=== PATIENT | female | born 1995 | race Caucasian/White ===

== ENCOUNTER 2016-09-28 20:01 | Emergency (ER) | payer BC ==
--- NOTE | 2016-09-28 20:05 | PDOC ---
[id number] No Limitations - History of Present Illness Initial Comments: 09/28/16 20:17 The patient is a 21 year old female with a significant past medical history of asthma, who presents to the ED s/p allergic reaction. Patient states she is experiencing nausea, lightheadedness, difficulty breathing, itchy lips, and itchy gums. Patient states she was eating sushi at around 19:00 when she noticed crab meat in her sushi. Patient used her albuterol inhaler twice prior to presentation. She did not take any antihistamines prior to being seen. Patient states she is allergic to shellfish and peanut butter. Patient denies fever, chills, wheezing, vomiting. <Ben Alvares - Last Filed: 09/28/16 20:38> <Marlee Bess - Last Filed: 09/29/16 01:27> - General Stated Complaint: ALLERGIC REACTION Time Seen by Provider: 09/28/16 20:03 Past History <Ben Alvares - Last Filed: 09/28/16 20:38> <Marlee Bess - Last Filed: 09/29/16 01:27> - Past Medical History Allergies/Adverse Reactions: Allergies Allergy/AdvReac Type Severity Reaction Status Date / Time No Known Drug Allergies Allergy Verified 09/28/16 20:06 peanut Allergy Verified 09/28/16 20:05 shellfish derived Allergy Verified 09/28/16 20:05 Home Medications: Ambulatory Orders Albuterol Sulfate Inhaler - [Ventolin Hfa Inhaler -] 1 puff IH PRN PRN 09/28/16 Epinephrine (Epi-Pen 0.3MG) [Epipen 0.3MG -] 0.3 mg IM ASDIR #2 pens 09/28/16 Review of Systems - Review of Systems Able to Perform ROS?: Yes Comments:: 09/28/16 20:17 CONSTITUTIONAL: Absent: fever, chills, diaphoresis, generalized weakness, malaise, loss of appetite HEENT: Absent: rhinorrhea, nasal congestion, throat pain, throat swelling, difficulty swallowing, mouth swelling, ear pain, eye pain, visual Changes CARDIOVASCULAR: Present: lightheadedness. Absent: chest pain, syncope, palpitations, irregular heart rate, peripheral edema RESPIRATORY: Present: difficulty breathing Absent: cough, dyspnea with exertion, orthopnea, wheezing, stridor, hemoptysis GASTROINTESTINAL: Present: nausea Absent: abdominal pain, abdominal distension, vomiting, diarrhea, constipation, melena, hematochezia GENITOURINARY: Absent: dysuria, frequency, urgency, hesitancy, hematuria, flank pain, genital pain MUSCULOSKELETAL: Absent: myalgia, arthralgia, joint swelling SKIN: Present: itchy lip and itchy gums Absent: rash, pallor HEMATOLOGIC/IMMUNOLOGIC: Absent: easy bleeding, easy bruising, lymphadenopathy, frequent infections ENDOCRINE: Absent: unexplained weight gain, unexplained weight loss, heat intolerance, cold intolerance NEUROLOGIC: Absent: headache, focal weakness or paresthesias, unsteady gait, seizure, mental status changes, bladder or bowel incontinence PSYCHIATRIC: Absent: anxiety, depression, suicidal or homicidal ideation, hallucinations. <Ben Alvares - Last Filed: 09/28/16 20:38> *Physical Exam - Vital Signs Last Vital Signs Temp Pulse Resp BP Pulse Ox 97.8 F 89 18 142/94 100 09/28/16 20:07 09/28/16 20:07 09/28/16 20:07 09/28/16 20:07 09/28/16 20:07 - Physical Exam Comments: 09/28/16 20:19 GENERAL: The patient is awake, alert, and fully oriented, in no acute distress. HEAD:[Normal with no signs of trauma. EYES: Pupils equal, round and reactive to light, extraocular movements intact, sclera anicteric, conjunctiva clear. EXTREMITIES: Normal range of motion, no edema. NEUROLOGICAL: Normal speech, normal gait. PSYCH: Normal mood, normal affect. SKIN: Warm, Dry, normal turgor, no rashes or lesions noted. <Ben Alvares - Last Filed: 09/28/16 20:38> Medical Decision Making - Medical Decision Making Documentation has been prepared under my direction and personally reviewed by me in its entirety. I attest that this documented accurately reflects all work, treatment, procedures and medical decision making performed by me. As noted above, this 21-year-old woman with a history of asthma and ALLERGY to shellfish, inadvertently ate crab meat just prior to presentation. She noted small area of edema of her lower lip and sensation of chest tightness. She also had some mild abdominal discomfort She had no difficulty swallowing or breathing and did not hear wheezing at any time. Patient used her albuterol inhaler twice prior to presentation to the ER. She did not take any other medications prior to presentation.. Exam, as noted was normal. . Patient given Benadryl 50 mg by mouth. After approximately 30 minutes, patient continued to feel sensation of chest tightness. Patient given DuoNeb treatment After DuoNeb treatment, patient had no further sensation of chest tightness. Patient will be discharged with instructions to continue Benadryl as needed. She 'll also be given a prescription for EpiPen, which she does not currently have. She should return to the emergency room if she has any lip/tongue swelling or sensation of difficulty swallowing or breathing. <Marlee Bess - Last Filed: 09/29/16 01:27> *DC/Admit/Observation/Transfer - Attestations Scribe Attestion: 09/28/16 20:19 Documentation prepared by Ben Alvares, acting as medical front desk specialist for Marlee Bess MD. <Ben Alvares - Last Filed: 09/28/16 20:38> <Marlee Bess - Last Filed: 09/29/16 01:27> Diagnosis at time of Disposition: Allergic reaction Qualifiers: Encounter type: initial encounter Qualified Code(s): T78.40XA - Allergy, unspecified, initial encounter - Discharge Dispostion Disposition: HOME Condition at time of disposition: Stable - Prescriptions Prescriptions: Epinephrine (Epi-Pen 0.3MG) [Epipen 0.3MG -] 0.3 mg IM ASDIR #2 pens - Referrals Referrals: STAFF,NOT ON [Primary Care Provider] - - Patient Instructions Printed Discharge Instructions: DI for General Allergic Reactions Additional Instructions: Benadryl 25 mg every 6 hours as needed for itching Return to ER if you have any difficulty swallowing/breathing Follow-up with your doctor within the next week Fill prescription for EpiPen and have available at all times
[2016-09-28 20:09] VITALS: BP 142/94; PULSE 89; TEMP 97.8; BMI 28.3
[2016-09-28] MEDS ORDERED: diphenhydrAMINE HCL 50 MG CAPSULE PO ONE (20:18)
[2016-09-28] MEDS ORDERED: ALBUTEROL SO4 2.5/IPRATROPIUM 0.5 INH SOL 3 ML VIAL.NEB. NEB ONE ×2 (21:05→21:06)
== END 2016-09-28 22:01 | disposition home or self-care (01) ==
LOC: FER 20:01
PROC: 3E0F7GC Introduction of Other Therapeutic Substance into Respiratory Tract, Via Natural or Artificial Opening (ICD-10-PCS; principal; 2016-09-28)
DX: T78.40XA Allergy, unspecified, initial encounter (principal); X58.XXXA Exposure to other specified factors, initial encounter; Y93.89 Activity, other specified; J45.909 Unspecified asthma, uncomplicated
CPT/HCPCS: 99282-25